=== PATIENT | female | born 1965 | race Caucasian/White ===

== ENCOUNTER 2017-11-08 19:39 | Emergency (ER) | payer SELFPAY ==
[2017-11-08 20:11] VITALS: BP 188/87
--- NOTE | 2017-11-08 20:12 | ED Physician Chart ---
ED Chief Complaint/HPI - Patient Information Date Seen:: 11/08/17 Time Seen:: 20:07 Chief Complaint:: abd pain History of Present Illness:: 51 yr old female with hx of diverticolosis with one day hx of abd pain no n,v,d no cough mild fever and flu like sxs sxs mild to mod intermittent on a scale of 8/10 ED Review of Systems - Review of Systems General/Constitutional: Fever Skin: No skin lesions, No rash, No bruising Head: No headache, No light-headedness Eyes: No loss of vision, No pain, No diplopia ENT: No earache, No nasal drainage, No sore throat, No tinnitus Neck: No neck pain, No swelling, No thyromegaly, No stiffness, No mass noted Cardio Vascular: No chest pain, No palpitations, No PND, No orthopnea, No edema Pulmonary: No SOB, No cough, No sputum, No wheezing GI: No nausea, No vomiting, No diarrhea, Pain, No melena, No hematochezia, No constipation, No hematemesis G/U: No dysuria, No frequency, No hematuria Musculoskeletal: No bone or joint pain, No back pain, No muscle pain Endocrine: No polyuria, No polydipsia Psychiatric: No prior psych history, No depression, No anxiety, No suicidal ideation Hematopoietic: No bruising, No lymphadenopathy Allergic/Immuno: No urticaria, No angioedema Neurological: No syncope, No focal symptoms, No weakness, No paresthesia, No headache, No seizure, No dizziness, No confusion, No vertigo ED Past Medical History - Past Medical History Past Medical History: HTN, Other (diverticulosis) Social History: Non Smoker Medication: Reviewed ED Physical Exam - Physical Examination General/Constitutional: Awake, Well-developed, well-nourished, Alert, No distress, GCS 15, Non-toxic appearing, Ambulatory Head: Atraumatic Eyes: Lids, conjuctiva normal, PERRL, EOMI Skin: Nl inspection, No rash, No skin lesions, No ecchymosis, Well hydrated, No lymphadenopathy ENMT: External ears, nose nl, Nasal exam nl, Lips, teeth, gums nl Neck: Nontender, Full ROM w/o pain, No JVD, No nuchal rigidity, No bruit, No mass, No stridor Respiratory: Nl effort/Exclusion, Clear to Auscultation, No Wheeze/Rhonchi/Rales Cardio Vascular: RRR, No murmur, gallop, rubs, NL S1 S2 GI: No tenderness/rebounding/guarding (se tenderness coreen on left no organomegaly), No organomegaly, No hernia, Normal BS's, Nondistended, No mass/ bruits, No McBurney tenderness : No CVA tenderness Extremities: No tenderness or effusion, Full ROM, normal strength in all extremities, No edema, Normal digits & nails Neuro/Psych: Alert/oriented, DTR's symmetric, Normal sensory exam, Normal motor strength, Judgement/insight normal, Mood normal, Normal gait, No focal deficits Misc: Normal back, No paraspinal tenderness ED Assessment - Assessment General Assessment: abd pain ED Septic Shock - . Is Septic Shock (SBP<90, OR Lactate>4 mmol\L) present?: No ED Reassessment (Disposition) - Reassessment Reassessment Condition:: Improved - Diagnosis Diagnosis:: DIVERTICULITIS PER ABD CT FINE KIDNEY STONES ON LEFT AND HX OF CCY UA POSITIVE UTI PT TO RECEIVE LEVAQUIN 750 MG IV AND RX KEFLEX PT SELF PAY AND REFUSES ADMISSION SHE IS TO F/U PMD - Patient Disposition Discharge/Transfer:: Home (RX KEFLEX FOR 3 WKS) Transport Method:: ACLS Admitted to:: Med/Surg Condition at Disposition:: Stable
[2017-11-08] MEDS ORDERED: Sodium Chloride 0.9% 1,000 ML IV ONE (20:27)
[2017-11-08 20:42] LABS: % BASOPHILS 0.6 % (0.0-2.0); % EOSINOPHILS 1.2 % (0.0-5.0); % LYMPHOCYTES 20.5 % (20.0-50.0); % MONOCYTES 5.8 % (2.0-10.0); % NEUTROPHILS 71.9 % (40.0-80.0); BASOPHILE ABSOLUTE 0.1 Th/cumm (0-0.2); EOSINOPHILE ABSOLUTE 0.1 Th/cmm (0.1-0.4); HEMATOCRIT 32.4 % (41.0-60); HEMOGLOBIN 10.9 gm/dL (12-16); LYMPHOCYTE ABSOLUTE 2.1 Th/cmm (1.5-3.0); MEAN CELL VOLUME 79.9 fl (81-100); MEAN CORPUSCULAR HGB CONC 33.8 pg (28.0-36.0); MEAN PLATELET VOLUME 7.4 fl; MONOCYTE ABSOLUTE 0.6 Th/cmm (0.3-1.0); NEUTROPHILE ABSOLUTE 7.2 Th/cmm (1.8-8.0); PLATELET COUNT 282 Th/cmm (150-400); RED BLOOD COUNT 4.05 Mil/cmm (3.80-5.10); RED CELL DISTRIBUTION WIDTH 14.7 % (11.5-20.0); WHITE BLOOD COUNT 10.1 Th/cmm (4.8-10.8)
[2017-11-08 20:55] LABS: INR 0.95 (0.5-1.4); PROTHROMBIN TIME (TEST) 9.9 SECONDS (9.5-11.5)
[2017-11-08 20:58] LABS: ALB/GLOB RATIO 1.5 (1.0-1.8); ALBUMIN 4.2 gm/dL (3.7-5.3); ALKALINE PHOSPHATASE 77 U/L (34-104); BILIRUBIN,TOTAL 1.4 mg/dL (0.3-1.0); BUN - UREA NITROGEN 12 mg/dL (7-25); CARBON DIOXIDE 24.1 mEq/L (21.0-31.0); CHLORIDE 101 mEq/L (98-107); CREATININE - SERUM 0.6 mg/dL (0.6-1.2); GFR AFRICAN-AMERICAN > 60.0 ml/min (>90); GFR NON AFRICAN-AMERICAN > 60.0 ml/min; GLUCOSE 105 mg/dL (70-105); POTASSIUM SERUM 3.1 mEq/L (3.5-5.1); SGOT 15 U/L (13-39); SGPT/ALT 19 U/L (7-52); SODIUM SERUM 134 mEq/L (136-145); TOTAL PROTEIN,SERUM 7.1 gm/dL (6.0-8.3)
[2017-11-08] MEDS ORDERED: Potassium Chloride 20 mEq ER Tab PO ONE ×3 (21:16→21:20)
[2017-11-08 22:04] LABS: URINE MICROSCOPIC INDICATED? YES; URINE SOURCE CLEAN C
[2017-11-08 22:08] LABS: URINE BILIRUBIN NEGATIVE (NEGATIVE); URINE BLOOD NEGATIVE (NEGATIVE); URINE GLUCOSE (UA) NEGATIVE (NEGATIVE); URINE KETONE NEGATIVE (NEGATIVE); URINE LEUKOCYTE ESTERASE NEGATIVE (NEGATIVE); URINE NITRATE POSITIVE (NEGATIVE); URINE PROTEIN NEGATIVE (NEGATIVE)
[2017-11-08 22:16] LABS: URINE BACTERIA 3+ /hpf (NONE SEEN); URINE CLARITY HAZY (CLEAR); URINE COLOR YELLOW; URINE EPITHELIAL CELLS MANY /lpf (FEW); URINE RBC 0-2 /hpf (0-5); URINE WBC 0-2 /hpf (0-5)
[2017-11-08] MEDS ORDERED: Levofloxacin 750mg/150mL 750 MG/150 ML BAG IV ONE ×2 (22:16→22:18)
[2017-11-08] MEDS ORDERED: Dicyclomine 10 mg Cap ONE (22:18)
[2017-11-08] MEDS ORDERED: Dicyclomine 10 mg Cap PO STA (22:21)
--- NOTE | 2017-11-09 09:32 | Diagnostic Imaging Report ---
CHEST X-RAY: AP view INDICATION: pain COMPARISON: None FINDINGS: There is no focal consolidation or pleural effusions The heart size is borderline prominent. The osseous structures demonstrate no acute abnormalities. IMPRESSION: No focal consolidation identified. Borderline prominent heart.
--- NOTE | 2017-11-09 10:01 | Diagnostic Imaging Report ---
CT abdomen and pelvis without intravenous contrast Indication: Abdominal pain Comparison: None, Technique: Axial images were obtained from the lung bases to the bilateral proximal femurs without IV contrast. Coronal reconstructions were made. total DLP: 559, CTDI11.8 FINDINGS: Hypoventilatory and atelectatic changes of the lung bases are noted. Assessment of the solid organs is limited due to lack of IV contrast. There is fatty infiltration of the liver. No evidence of focal hepatic lesions. There is evidence of prior cholecystectomy. No focal splenic, pancreatic, or adrenal lesions. 3 mm nonobstructing left renal stone is noted. No hydronephrosis. Diverticulosis is seen with diverticulitis of the sigmoid colon with bowel wall thickening and inflammatory change and trace free fluid in this region. No evidence of free abdominal air. Additional postsurgical changes are seen Within the transverse colon. Additional postsurgical changes are seen within bowel loops along the right lower quadrant. Postsurgical changes anterior abdominal wall is noted with prominent soft tissue density in this region along the lower abdomen. Borderline prominent mesenteric lymph nodes are noted. No evidence of free air. Mild atherosclerosis noted. Osseous structures demonstrate no acute abnormalities. IMPRESSION: Findings consistent with diverticulitis of the sigmoid colon with associated bowel wall thickening and inflammatory change and trace free fluid. No evidence of free air. Clinical Correlation and follow-up recommended. Additional postsurgical changes including evidence of areas of bowel resection along the transverse colon and within the right lower quadrant. These correlate with surgical history. Postsurgical changes of the anterior abdominal wall with soft tissue density in this region probably of postsurgical sequela. Again correlation old with old exams and surgical history is recommended. Hepatic steatosis Nonobstructive punctate left renal stone Evidence of prior cholecystectomy. Borderline prominent mesenteric lymph nodes, nonspecific.
== END 2017-11-08 23:55 | disposition home or self-care (01) ==
LOC: ER 19:39
DX: K57.92 Diverticulitis of intestine, part unspecified, without perforation or abscess without bleeding (principal); I10 Essential (primary) hypertension; Z88.1 Allergy status to other antibiotic agents; Z88.5 Allergy status to narcotic agent
CPT/HCPCS: 99285; 96365; 71045; 74176; 36415; 85025; 85610; 87086; 81001; 80053; 87040 ×2; J1956; J7030; Z7610